=== PATIENT | female | born 1980 | race Caucasian/White ===

== ENCOUNTER 2017-05-21 05:43 | Inpatient (IN) | payer BC ==
[~2017-05-21] VITALS: Ht 162.6 cm; Wt 120.0 kg
[~2017-05-21 05:43] MED LIST: AUGMENTIN500 MG PO; BACTRIM,SEPT1 TABLET PO; ENDOCET 5-3251 EACH PO; HYDROCODON-ACE1 EAC7 PO; IBUPROFEN800 MG PO; KEFLEX500 MG PO; MAGNESIUM400 M1 PO; MOTRIN800 MG PO; PRENATAL TABLE1 EACH PO
[2017-05-21 05:59] VITALS: BP 120/70
[2017-05-21 06:05] VITALS: BP 120/70
[2017-05-21] MEDS ORDERED: ENDOCET 5-3251 EACH PO (08:41)
[2017-05-21] MEDS ORDERED: IBUPROFEN800 MG PO (08:41)
[2017-05-21 09:48] LABS: HEMATOCRIT 27.3 % (36.0-46.0); MCV 91.3 FL (83-99)
[2017-05-21 12:52] LABS: ANION GAP 8 MEQ/L (2-14); CHLORIDE 108 MEQ/L (99-109); GFR ESTIMATE (CALCULATED) > 59 mL/min/; GLUCOSE 112 mg/dL (70-99); POTASSIUM 4.2 MEQ/L (3.7-5.4); SAMPLE HEMOLYSIS CHECK 0; SAMPLE ICTERIC CHECK 0; SAMPLE LIPEMIA CHECK 0; SODIUM 138 MEQ/L (136-147); UREA NITROGEN (BUN) 9 mg/dL (9-23)
[2017-05-21 12:57] LABS: MCV 90.6 FL (83-99)
[2017-05-21 13:35] VITALS: BP 118/62
[2017-05-21 14:00] VITALS: BP 110/66
[2017-05-21 16:13] VITALS: BP 111/70
[2017-05-22 06:28] LABS: EOSINOPHIL (%) 1.6 % (0-5); EOSINOPHIL COUNT 0.2 K/uL (0-0.3); HEMATOCRIT 21.3 % (36.0-46.0); IMMATURE GRANULOCYTE (%) 0.4 % (0.0-0.7); INSTRUMENT ABS NEUTROPHIL CT 7.2 K/uL; LYMPHOCYTE COUNT 2.1 K/uL (1.0-2.8); MCH 30.8 PG (29.0-34.0); MCHC 33.8 G/DL (30.0-36.0); MEAN PLAT.VOLUME 10.4 uM^3 (9.5-12.4); MONOCYTE (%) 9.8 % (3-12); NEUTROPHIL (%) 68.5 % (45-76); NEUTROPHIL COUNT 7.2 K/uL (1.8-6.4); RBC DIS.WIDTH-CV 14.4 % (11.8-14.6); RBC DIS.WIDTH-SD 47.2 % (39-53); WHITE BLOOD COUNT 10.5 K/uL (4.1-10.2)
[2017-05-22 06:29] LABS: PLATELET COUNT 138 K/uL (156-360); RED BLOOD COUNT 2.34 M/uL (3.80-5.20)
[2017-05-22 07:21] VITALS: BP 103/64
[2017-05-22 11:51] VITALS: BP 112/67
[2017-05-22 19:00] VITALS: BP 115/65
[2017-05-22 23:00] VITALS: BP 116/68
[2017-05-23 03:45] VITALS: BP 139/79
[2017-05-23] MEDS ORDERED: IRON325 MG PO (10:05)
[2017-05-23 11:11] VITALS: BP 122/71
== END 2017-05-23 13:26 | disposition home or self-care (01) | DRG 765 ==
LOC: 2WEST 05:43 → 2SOUTH 09:57 → 2WEST 05-23 13:26
PROVIDERS: Obstetrics & Gynecology
PROC: 0UB70ZZ Excision of Bilateral Fallopian Tubes, Open Approach (ICD-10-PCS; principal; 2017-05-21)
PROC: 10D00Z1 Extraction of Products of Conception, Low, Open Approach (ICD-10-PCS; principal; 2017-05-21)
PROC: 02HV33Z Insertion of Infusion Device into Superior Vena Cava, Percutaneous Approach (ICD-10-PCS; 2017-05-21)
PROC: 30243K1 Transfusion of Nonautologous Frozen Plasma into Central Vein, Percutaneous Approach (ICD-10-PCS; 2017-05-21)
PROC: 30243N1 Transfusion of Nonautologous Red Blood Cells into Central Vein, Percutaneous Approach (ICD-10-PCS; 2017-05-21)
DX: O34.211 Maternal care for low transverse scar from previous cesarean delivery (principal); O72.1 Other immediate postpartum hemorrhage; O99.02 Anemia complicating childbirth; D62 Acute posthemorrhagic anemia; O40.3XX0 Polyhydramnios, third trimester, not applicable or unspecified; O99.214 Obesity complicating childbirth; E66.9 Obesity, unspecified; Z87.891 Personal history of nicotine dependence; Z30.2 Encounter for sterilization; Z3A.39 39 weeks gestation of pregnancy; Z37.0 Single live birth; Z68.41 Body mass index [BMI] 40.0-44.9, adult
CPT/HCPCS: 36415; 71010; 80048; 85014; 85018; 85025; 85027; 86900; 86901; 86920; 86999; 88302; J0131; J1885; J2210; J2270; J2274; J2300; J2405; J2590; J3010; J7120; P9016; P9017